=== PATIENT | male | born 1965 | race Caucasian/White ===

== ENCOUNTER 2016-08-08 06:43 | Emergency (ER) | payer OTHER ==
[~2016-08-08] VITALS: Ht 177.8 cm; Wt 81.6 kg
[2016-08-08] MEDS ORDERED: ONDANSETRON 4 MG/2 ML VIAL IV ONE (07:00)
[2016-08-08] MEDS ORDERED: diphenhydrAMINE 50 MG/1 ML VIAL IV ONE (07:00)
[2016-08-08] MEDS ORDERED: IV NS 1000 ML 1,000 ML IV ONE (07:00)
[2016-08-08] MEDS ORDERED: methylPREDNISolone SOD SUCC 125 MG/2 ML VIAL IV ONE (07:00)
[2016-08-08] MEDS ORDERED: MORPHINE SULFATE 4 MG/1 ML DISP.SYRIN IV ONE (07:00)
[2016-08-08] MEDS ORDERED: PSORIASIS CREAM (07:04)
[2016-08-08] MEDS ORDERED: MORPHINE SULFATE 4 MG/1 ML DISP.SYRIN ONE (07:21)
[2016-08-08] MEDS ORDERED: diphenhydrAMINE 50 MG/1 ML VIAL ONE (07:21)
[2016-08-08] MEDS ORDERED: ONDANSETRON 4 MG/2 ML VIAL ONE (07:21)
[2016-08-08] MEDS ORDERED: methylPREDNISolone SOD SUCC 125 MG/2 ML VIAL ONE (07:22)
--- NOTE | 2016-08-08 07:24 | NUR ---
PT WAS EVALUATED BY DR NAVARRO. PT IS IN ROOM #2B, RESTING COMFORTABLY.
--- NOTE | 2016-08-08 08:55 | NUR ---
PT WAS D/C TO HOME. D/C INSTRUCTIONS GIVEN TO THE PT BY DR NAVARRO.
[2016-08-08 08:56] VITALS: BP 132/80
== END 2016-08-08 08:56 | disposition home or self-care (01) ==
LOC: ER 06:44
DX: R51 Headache (principal); F10.20 Alcohol dependence, uncomplicated; F17.200 Nicotine dependence, unspecified, uncomplicated; Z86.19 Personal history of other infectious and parasitic diseases
CPT/HCPCS: 96361; 96374; 96375; 99284; A4663; J1200; J2270; J2405; J2930; J7030